=== PATIENT | female | born 1950 | race Caucasian/White ===

== ENCOUNTER 2023-01-19 11:27 | Emergency (ER) | payer MEDICARE, BC ==
[~2023-01-19] VITALS: Ht 165.1 cm; Wt 75.6 kg
[2023-01-19] MEDS ORDERED: METFORMIN HYD1000 MG PO (11:44)
[2023-01-19 14:14] VITALS: BP 138/74
[2023-01-19 14:30] VITALS: BP 132/79
[2023-01-19 14:46] VITALS: BP 149/73
[2023-01-19 15:01] VITALS: BP 140/34
[2023-01-19 15:18] VITALS: BP 140/34
== END 2023-01-19 15:15 | disposition home or self-care (01) ==
LOC: ED 11:27
PROC: 0HQFXZZ Repair Right Hand Skin, External Approach (ICD-10-PCS; principal; 2023-01-19)
DX: S61.212A Laceration without foreign body of right middle finger without damage to nail, initial encounter (principal); I10 Essential (primary) hypertension; E11.9 Type 2 diabetes mellitus without complications; W01.198A Fall on same level from slipping, tripping and stumbling with subsequent striking against other object, initial encounter; Y92.007 Garden or yard of unspecified non-institutional (private) residence as the place of occurrence of the external cause; Z79.84 Long term (current) use of oral hypoglycemic drugs